=== PATIENT | male | born 1980 | race Two or more races ===

== ENCOUNTER 2020-05-23 10:03 | Emergency (ER) | payer OTHER ==
[~2020-05-23] VITALS: Ht 172.7 cm; Wt 77.1 kg
[2020-05-23 10:09] VITALS: BP 124/71
== END 2020-05-23 10:20 ==
LOC: ER 10:12
DX: Z02.89 Encounter for other administrative examinations (principal)

== ENCOUNTER 2020-07-21 16:49 | Emergency (ER) | payer OTHER ==
[~2020-07-21] VITALS: Ht 165.1 cm; Wt 74.8 kg
--- NOTE | 2020-07-21 17:01 | NUR ---
pt refused v/s check. aware.
--- NOTE | 2020-07-21 17:26 | NUR ---
Patient discharged in custody in stable condition. Written and verbal after care instructions given. Patient verbalizes understanding of instruction.
== END 2020-07-21 17:27 ==
LOC: ER 16:55
DX: Z02.89 Encounter for other administrative examinations (principal); F17.200 Nicotine dependence, unspecified, uncomplicated